=== PATIENT | male | born 1965 | race Caucasian/White ===

== ENCOUNTER 2023-09-19 11:09 | Outpatient (RCR) | payer OTHER, SELFPAY | END 2023-09-19 23:59 | disposition home or self-care (01) | LOC: RPT 11:09 | PROVIDERS: ATTENDING PHYSICIAN Family Medicine | DX: M54.59 Other low back pain (principal); Z73.6 Limitation of activities due to disability; X58.XXXD Exposure to other specified factors, subsequent encounter; Y93.89 Activity, other specified; Y92.89 Other specified places as the place of occurrence of the external cause; Y99.0 Civilian activity done for income or pay | CPT/HCPCS: 97110; 97162; 97535 ==

== ENCOUNTER 2023-10-17 18:39 | Outpatient (RCR) | payer OTHER, SELFPAY | END 2023-10-17 23:59 | disposition home or self-care (01) | LOC: RPT 18:39 | PROVIDERS: ATTENDING PHYSICIAN Family Medicine | DX: M54.59 Other low back pain (principal); Z73.6 Limitation of activities due to disability; R26.89 Other abnormalities of gait and mobility | CPT/HCPCS: 97010; 97110; 97535 ==

== ENCOUNTER 2023-11-07 18:27 | Outpatient (RCR) | payer OTHER, SELFPAY | END 2023-11-07 23:59 | disposition home or self-care (01) | LOC: RPT 18:27 | PROVIDERS: ATTENDING PHYSICIAN Family Medicine | DX: M54.59 Other low back pain (principal); Z73.6 Limitation of activities due to disability | CPT/HCPCS: 97010; 97110 ==

== ENCOUNTER → 2024-01-22 10:45 | Outpatient (REF) | payer OTHER, SELFPAY | LOC: RAD 10:45 | PROVIDERS: ATTENDING PHYSICIAN Physician Assistant Medical; FAMILY PHYSICIAN Family Medicine | DX: G89.29 Other chronic pain (principal) | CPT/HCPCS: 72110 ==